=== PATIENT | female | born 1965 | race Caucasian/White ===

== ENCOUNTER 2016-12-15 12:59 | Outpatient (CLI) ==
--- NOTE | 2016-12-18 10:06 | MAMMO ---
EXAM: Digital screening mammogram HISTORY: Screening COMPARISON: None FINDINGS: Digital MLO and CC views of the right and left breast were performed. There are scatter ed fibroglandular densities. There is a right breast mass in the central breast 7 cm from the nipple . There is a right breast asymmetry in the right superior lateral breast 10 cm from the nipple. The re is no evidence for mass, asymmetry, distortion, or suspicious calcifications in the left breast. IMPRESSION: 1. Right breast mass and right breast asymmetry. Diagnostic mammogram and ultrasound recommended f or further evaluation. 2. Negative left breast mammogram BIRADS category 0, incomplete
== END 2016-12-15 13:00 | disposition home or self-care (01) ==
LOC: RAD 12:59
PROVIDERS: ATTEND Family Medicine
DX: Z12.31 Encounter for screening mammogram for malignant neoplasm of breast (principal); F32.9 Major depressive disorder, single episode, unspecified; F41.9 Anxiety disorder, unspecified

== ENCOUNTER 2017-01-29 09:50 | Outpatient (CLI) ==
--- NOTE | 2017-01-29 11:11 | US ---
EXAM: Right breast ultrasound. History: Right breast masses. Comparison: Right digital diagnostic mammogram 01/29/2017 Technique: Multiple sonographic images through the right breast were obtained. Color duplex Dopple r was used to interrogate vascular flow. Findings: At 12 o'clock 6 cm from nipple there is a 0.8 cm x 0.5 cm x 0.7 cm well circumscribed mass with lobu lated margins. This correlates with mammography. Impression: 12 o'clock right breast mass is suspicious for malignancy. Recommend further evaluatio n with ultrasound guided breast biopsy BIRADS 4
--- NOTE | 2017-02-01 08:10 | MAMMO ---
EXAM: Right digital diagnostic mammogram History: Right breast nodules. Comparison: Bilateral mammogram 12/15/2016 Findings: Right breast density is predominately fatty. Additional spot compression views of the ri ght breast in the MLO and CC projections confirm the right breast nodules in question. No suspiciou s microcalcifications. Impression: Indeterminate right breast nodules. Recommend further evaluation with ultrasound. BIRADS 0
== END 2017-01-29 09:51 | disposition home or self-care (01) ==
LOC: RAD 09:50
PROVIDERS: ATTEND Family Medicine
DX: R92.8 Other abnormal and inconclusive findings on diagnostic imaging of breast (principal)

== ENCOUNTER 2017-05-17 09:39 | Emergency (ER) ==
[2017-05-17 09:48] VITALS: BP 155/87; TEMP 98.2; BMI 29.2
[2017-05-17 10:16] LABS: BASOPHILS # (AUTO) 0.1 K/uL (0-0.2); BASOPHILS % (AUTO) 1.1 % (0.0-3.0); EOSINOPHILS # (AUTO) 0.2 K/ul (0.0-0.7); EOSINOPHILS % (AUTO) 2.9 % (0.0-7.0); HEMOGLOBIN 14.9 g/dl (12.0-16.0); IMMATURE GRANULOCYTE % (AUTO) 0.3 % (0.0-5.0); LYMPHOCYTES # (AUTO) 1.8 K/uL (0.60-3.4); MEAN CORPUSCULAR HEMOGLOBIN 31.8 pg (27.0-31.0); MEAN CORPUSCULAR HGB CONC 34.7 (31.8-35.4); MEAN CORPUSCULAR VOLUME 91.7 fl (81.0-99.0); MONOCYTES # (AUTO) 0.5 K/uL (0.4-2.0); MONOCYTES % (AUTO) 6.9 (0-10); NEUTROPHILS # (AUTO) 5.2 K/ul (2.0-6.9); NEUTROPHILS % (AUTO) 65.8; PLATELET COUNT 536 10^3/uL (140-440); RED BLOOD COUNT 4.69 10^6/ul (4.20-5.40); WHITE BLOOD COUNT 7.88 K/ul (4.6-10.2)
[2017-05-17 10:36] LABS: ALBUMIN 4.3 g/dL (3.4-5.0); ALBUMIN/GLOBULIN RATIO 1.34; ANION GAP 16.9; BILIRUBIN,TOTAL 0.82 mg/dL (0.00-1.20); BUN/CREATININE RATIO 11.9; CREATININE 0.84 mg/dL (0.60-1.30); POTASSIUM 3.9 mmol/L (3.5-5.10); TOTAL PROTEIN 7.5 g/dL (6.4-8.2)
--- NOTE | 2017-05-17 10:54 | CT ---
EXAM: CT head without contrast HISTORY: Breast mass and headache COMPARISON: None TECHNIQUE: Serial axial images of the brain were obtained from the skull base to the vertex without IV contrast. FINDINGS: The ventricles, cisterns and sulci are normal. The bello-white matter junction is well ma intained. No midline shift or mass is identified. There is no abnormal intra or extra-axial fluid collection. The paranasal sinuses and mastoid air cells are clear. The osseous calvarium is intact . IMPRESSION: No acute intracranial abnormality or hemorrhage. If further evaluation is clinically in dicated, MRI with and without contrast will better evaluate for metastatic disease.
--- NOTE | 2017-05-17 11:07 | CT ---
EXAM: CT chest without contrast. HISTORY: Right-sided breast mass. Right wrist pain. COMPARISON: Breast ultrasound 01/29/2017. TECHNIQUE: Multiple axial images of the chest were obtained without intravenous contrast. Images w ere reformatted in the sagittal and coronal planes. FINDINGS: A 0.9 x 0.6 cm right breast nodule noted on axial image 35. No axillary lymphadenopathy identified. Nonenlarged mediastinal lymph nodes are present. Evaluation for hilar lymphadenopathy is limited by lack of intravenous contrast. Heart size is normal. No pericardial effusion identifi ed. Atherosclerotic calcifications are present.. The lungs are clear without suspicious nodule, co nsolidation, pleural effusion or pneumothorax. Limited images of the upper abdomen demonstrate evidence prior gastric bypass surgery. Fluid densit y right renal cortical lesion on axial image 71 is incompletely imaged but most likely a cyst. Ther e are old right-sided rib fractures. No osteolytic or osteoblastic lesion identified. IMPRESSION: 1. A 0.9 x 0.6 cm right breast nodule, likely corresponding to the area on prior ultrasound. Corre late with biopsy is previously recommended. 2. No acute abnormality within the chest.
--- NOTE | 2017-05-17 11:23 | ED.PDOC ---
General ED Provider: Dr. TERRY SEGUNDO Chief Complaint: Breast Pain Stated Complaint: BREAST PAIN RIGHT SIDED AND HEADACHE Time Seen by Physician: 09:50 (SEEN WITH RN RECENT BREAST MASS NOTED ) Mode of Arrival: Walk-In Information Source: Patient Exam Limitations: No limitations Primary Care Provider: GILBERTO COWAN Nursing and Triage Documentation Reviewed and Agree: Yes (WORRIED ABOUT CANCER SCHADULED FOR BX NEXT FEW DAYS) Miscellaneous Complaint Exam - Complex/Multi-System Complaint/Exam Symptoms Are: Still present Episodes Lasting: Weeks Initial Severity: Mild Current Severity: Mild Location of Pain: RIGHT BREAST Pain Radiates to: NO Associated Signs and Symptoms: Reports: Cough. Denies: Decreased responsiveness , Confusion, Agitation, Dizziness, Weakness, Syncope, Headache, Short of air, Wheezing, Hemoptysis, Chest pain, Palpitations, Edema, Nausea, Vomiting, Diarrhea, Abdominal pain, Back pain, Dysuria, Hematemesis, Melena, Decreased oral intake, Fever, Diaphoresis, Immunocompromised, Anticoagulation Therapy, Recent medication changes, Indwelling medical housekeeper, Prior MRSA, Prior VRE, Recent trauma, Remote trauma Related History: Recent Illness (BREAST MASS RIGHT SIDED ) Recent Echo/LV Function: No Respiratory Distress: None JVD Present: No Tachypnea Present: No Stridor Present: No Abdominal Findings: Present: Normal findings Glascow Coma Scale (see protocol): 15 Meningeal Signs Positive: No Focal Weakness: Present: None Focal Sensory Loss: Present: None Gait: Normal Babinski Sign: Negative Right, Negative Left Joint Swelling Present: No In-Dwelling Device Present: No Quality Indicators for Cardiac Chest Pain: EKG in 10min. Quality Indicators for AMI: EKG in 10min. Quality Indicator For Non-Traumatic Chest Pain/Syncope: EKG Performed Review of Systems - Review Of Systems Constitutional: Reports: No symptoms Eyes: Reports: No symptoms Ears, Nose, Mouth, Throat: Reports: No symptoms Respiratory: Reports: Cough Cardiac: Reports: No symptoms GI: Reports: No symptoms : Reports: No symptoms Musculoskeletal: Reports: No symptoms Skin: Reports: No symptoms Neurological: Reports: No symptoms Endocrine: Reports: No symptoms Hematologic/Lymphatic: Reports: No symptoms All Other Systems: Reviewed and Negative Past Medical History - Past Medical History Previously Healthy: Yes Endocrine: Reports: None Cardiovascular: Reports: None Respiratory: Reports: None Hematological: Reports: None Gastrointestinal: Reports: None Genitourinary: Reports: None Neuro/Psych: Reports: Anxiety, Depression (BREAST MASS) Musculoskeletal: Reports: None Cancer: Reports: None Last Menstrual Period: 2010 - Surgical History General Surgical History: Reports: None - Family History Family History: Reports: None - Social History Smoking Status: Current every day smoker Hx Substance Use: No Alcohol Screening: Occasionally - Immunizations Tetanus Shot up to Date: Yes Physical Exam - Physical Exam Appearance: Well-appearing, No pain distress, Well-nourished Eyes: JUNIOR, EOMI, Conjunctiva clear ENT: Ears normal, Nose normal, Oropharynx normal Respiratory: Airway patent, Breath sounds clear, Breath sounds equal, Respirations nonlabored Cardiovascular: RRR, Pulses normal, No rub, No murmur GI/: Soft, Nontender, No masses, Bowel sounds normal, No Organomegaly Musculoskeletal: Normal strength, ROM intact, No edema, No calf tenderness Skin: Warm, Dry, Normal color Neurological: Sensation intact, Motor intact, Reflexes intact, Cranial nerves intact, Alert, Oriented Psychiatric: Affect appropriate, Mood appropriate Critical Care Note - Critical Care Note Total Time (mins): 0 Course - Course Hematology/Chemistry: 05/17/17 10:10 05/17/17 10:10 Orders, Labs, Meds: Lab Review 05/17/17 10:10 WBC 7.88 RBC 4.69 Hgb 14.9 Hct 43.0 MCV 91.7 MCH 31.8 H MCHC 34.7 RDW Coeff of [place] 13.2 Plt Count 536 H Immature Gran % (Auto) 0.3 Neut % (Auto) 65.8 Lymph % (Auto) 23.0 Spink % (Auto) 6.9 Eos % (Auto) 2.9 Baso % (Auto) 1.1 Immature Gran # (Auto) 0.0 Neut # 5.2 Lymph # 1.8 Spink # 0.5 Eos # 0.2 Baso # 0.1 Sodium 141 Potassium 3.9 Chloride 104 Carbon Dioxide 24 Anion Gap 16.9 BUN 10 Creatinine 0.84 Estimated GFR (MDRD) 71.00 BUN/Creatinine Ratio 11.90 Glucose 120 H Calcium 10.0 Total Bilirubin 0.82 AST 15 ALT 13 Alkaline Phosphatase 139 H Total Protein 7.5 Albumin 4.3 Globulin 3.2 Albumin/Globulin Ratio 1.34 Orders Category Date Time Status CBC W/ AUTO DIFF Stat LAB 05/17/17 10:10 Completed COMPREHENSIVE METABOLIC PANEL Stat LAB 05/17/17 10:[address] CHEST W/O CONTRAST Stat RADS 05/17/17 10:[address] HEAD W/O CONTRAST Stat RADS 05/17/17 10:06 Completed Vital Signs: Temp Pulse Resp BP Pulse Ox 05/17/17 09:40 98.2 F 118 H 20 155/87 H 98 Departure - Departure Time of Disposition: 11:24 Disposition: HOME SELF-CARE Discharge Problem: Pain of breast Instructions: Breast Mass (ED) Condition: Good Pt referred to PMD for follow-up: Yes Additional Instructions: Please call your Family Physician as soon as possible to schedule a follow-up appointment. Allergies/Adverse Reactions: Allergies No Known Allergies Allergy (Unverified 05/17/17 09:50) Home Medications: Ambulatory Orders Alprazolam [Xanax] 0.5 mg PO BID 05/17/17 Citalopram Hydrobromide [Celexa] 20 mg PO DAILY 05/17/17
== END 2017-05-17 11:32 | disposition home or self-care (01) ==
LOC: ED 09:39
DX: N63 Unspecified lump in breast (principal); N64.4 Mastodynia; R51 Headache; R05 Cough; F17.210 Nicotine dependence, cigarettes, uncomplicated
CPT/HCPCS: 36415; 80053; 85025; 99283

== ENCOUNTER 2017-06-14 12:55 | Outpatient (CLI) | END 2017-06-14 12:56 | LOC: AMBL 12:55 | PROVIDERS: ATTEND Emergency Medicine | DX: R68.89 Other general symptoms and signs (principal) ==

== ENCOUNTER 2017-06-18 17:04 | Emergency (ER) ==
[2017-06-18 17:14] VITALS: BP 154/91; TEMP 98.9; BMI 29.9
--- NOTE | 2017-06-18 19:07 | ED.PDOC ---
General ED Provider: Dr. BAO HANSON-ER Chief Complaint: Chest Wall Injury/Pain Stated Complaint: i fell and hurt my chest 2 days ago Time Seen by Physician: 17:10 Mode of Arrival: Walk-In Information Source: Patient Exam Limitations: No limitations Primary Care Provider: GILBERTO COWAN Nursing and Triage Documentation Reviewed and Agree: Yes Trauma/Injury Complaint Exam - Truncal Trauma Complaint/Exam Location of Pain: Reports: Right, Anterior Onset: 2 days ago Symptoms Are: Still present Onset of Pain: Reports: Immediate Initial Severity: Mild Current Severity: Mild Mechanism: Reports: Fall Aggravating: Reports: Movement, Deep breathing, Cough Alleviating: Reports: Shallow breathing Associated Signs and Symptoms: Reports: Chest pain, Cough. Denies: Short of air , Hematuria, Abdominal pain, Fever, Nausea, Vomiting Vertebral Tenderness Present: No Vertebral Deformity Present: No Trachial Deviation Present: No JVD Present: No Crepitus Present: No Diminished Breath Sounds: No Reproducible Pain at: right lateral chest wall Muffled Heart Sounds Present: No Paradoxical Chest Wall Movement Present: No Abdominal Guarding Present: No Abdominal Rigidity Present: No Referred Shoulder Pain (Kehr's Sign) Present: No Skin Findings: Present: Normal findings Differential Diagnoses: Chest Wall Contusion, Rib Fracture Review of Systems - Review Of Systems Constitutional: Reports: No symptoms Eyes: Reports: No symptoms Ears, Nose, Mouth, Throat: Reports: No symptoms Respiratory: Reports: No symptoms Cardiac: Reports: Chest pain GI: Reports: No symptoms : Reports: No symptoms Musculoskeletal: Reports: No symptoms Skin: Reports: No symptoms Neurological: Reports: No symptoms Endocrine: Reports: No symptoms Hematologic/Lymphatic: Reports: No symptoms All Other Systems: Reviewed and Negative Past Medical History - Past Medical History Previously Healthy: Yes Endocrine: Reports: None Cardiovascular: Reports: None Respiratory: Reports: None Hematological: Reports: None Gastrointestinal: Reports: None Genitourinary: Reports: None Neuro/Psych: Reports: Anxiety, Depression (BREAST MASS) Musculoskeletal: Reports: None Cancer: Reports: None Last Menstrual Period: hysterectomy - Surgical History General Surgical History: Reports: None - Family History Family History: Reports: None - Social History Smoking Status: Current every day smoker, Heavy tobacco smoker Hx Substance Use: No Alcohol Screening: Heavy Lives: With family Physical Exam - Physical Exam Appearance: Well-appearing, No pain distress, Well-nourished Pain Distress: Mild Eyes: JUNIOR, EOMI, Conjunctiva clear ENT: Ears normal, Nose normal, Oropharynx normal Neck: Supple Respiratory: Airway patent, Breath sounds clear, Breath sounds equal, Respirations nonlabored Cardiovascular: RRR, Pulses normal, No rub, No murmur GI/: Soft, Nontender, No masses, Bowel sounds normal, No Organomegaly (she is not tender over liver edge) Musculoskeletal: Normal strength, ROM intact, No edema, No calf tenderness Skin: Warm, Dry, Normal color Neurological: Sensation intact, Motor intact, Reflexes intact, Cranial nerves intact, Alert, Oriented Psychiatric: Affect appropriate, Mood appropriate Interpretation - Radiology Interpretation Radiology Interpretation By: Radiologist Radiology Results: Negative Exam Interpreted: CT Scan Critical Care Note - Critical Care Note Total Time (mins): 0 Course - Course Orders, Labs, Meds: Orders Category Date Time Status CT CERVICAL SPINE W/O CONTRAST Stat RADS 06/18/17 18:[address] CHEST W/O CONTRAST Stat RADS 06/18/17 18:[address] HEAD W/O CONTRAST Stat RADS 06/18/17 18:[address] MAXILLOFACIAL W/O CONTRAST Stat RADS 06/18/17 18:59 Completed Vital Signs: Temp Pulse Resp BP Pulse Ox 06/18/17 17:07 98.9 F 101 H 20 154/91 H 98 Departure - Departure Time of Disposition: 21:00 Disposition: HOME SELF-CARE Discharge Problem: Chest wall pain Instructions: Chest Wall Pain (ED) Condition: Good Pt referred to PMD for follow-up: Yes Additional Instructions: norco 7.5mg q 4hrs prn pain #15--f/u pcp next week Allergies/Adverse Reactions: Allergies adhesive tape Adverse Reaction (Verified 06/18/17 17:16) Home Medications: Ambulatory Orders Alprazolam [Xanax] 0.5 mg PO BID PRN 05/17/17 Citalopram Hydrobromide [Celexa] 20 mg PO DAILY 05/17/17 Disposition Discussed With: Patient
--- NOTE | 2017-06-18 20:51 | CT ---
EXAM: CT scan of the head without contrast HISTORY: Fall TECHNIQUE: Imaging of the head was performed without contrast. 5 mm thin axial images were provided for interpretation. FINDINGS: The bello-white interface appears normal. The lateral ventricles and cortical sulci are no rmal. The basal cisterns are patent. There is no acute hemorrhage or mass effect. There are no ext raaxial collections are the paranasal sinuses and mastoid air cells are clear. The calvarium appears normal. IMPRESSION: No acute intracranial abnormalities are seen.
--- NOTE | 2017-06-18 20:55 | CT ---
EXAM: CT scan of the cervical spine without contrast HISTORY: Trauma TECHNIQUE: Imaging of the cervical spine was performed without contrast. Sagittal and coronal recon structions and axial images were provided for interpretation. FINDINGS: The occipital condyles, C1 ring appear intact. No acute fractures are seen within the odo ntoid process and C2 vertebral body. The spinous processes are intact. There is a normal alignment of the facet joints. IMPRESSION: No evidence of acute fracture dislocation seen within the cervical spine.
--- NOTE | 2017-06-18 20:56 | CT ---
Exam: CT facial bones without contrast History: Fall with injury and pain Technique: [address] facial bones with multiplanar reformations FINDINGS: The paranasal sinuses are clear. Dental disease is present. No fracture of the mandible. The zygoma and nasal bones are intact. The orbits are intact. The mastoid air cells and middle ea rs are clear. Impression: 1. No facial fracture
--- NOTE | 2017-06-18 20:58 | CT ---
EXAM: CT scan of the chest without contrast HISTORY: Fall TECHNIQUE: Imaging of the chest was performed without contrast. 5 mm thin axial images and coronal and sagittal reconstructions were provided for interpretation. FINDINGS: The heart is normal size. No mediastinal abnormalities are seen. Lungs are clear. There is no pleural separation. There is mild probable atelectasis seen within the dependent right lung b ase. Old right-sided rib fractures are seen. No definite acute fractures are seen within the ribs. No acute fractures are seen within the sternum and thoracic spine. Postoperative changes are seen al inge the body of the stomach. IMPRESSION: No acute traumatic abnormalities are seen within the thorax.
== END 2017-06-18 21:11 | disposition home or self-care (01) ==
LOC: ED 17:04
DX: R07.89 Other chest pain (principal); W19.XXXA Unspecified fall, initial encounter; F17.210 Nicotine dependence, cigarettes, uncomplicated
CPT/HCPCS: 99282